=== PATIENT | female | born 1950 | race Caucasian/White ===

== ENCOUNTER 2022-12-29 01:49 | Emergency (ER) | payer MEDICARE, OTHER ==
[~2022-12-29] VITALS: Ht 160 cm; Wt 119.7 kg
[~2022-12-29 01:49] MED LIST: CIPR-260 PO; GLUXR500 PO; LIP20 PO; PROAIR
--- NOTE | 2022-12-29 01:50 | NUR ---
Patient triaged and placed in ED RM 06. VSS and patient appears in no acute distress at this time. BIB BLS ambulance. MD Mccauley notified of need for MSE. Report given to MARK Bonenr.
--- NOTE | 2022-12-29 01:53 | NUR ---
MD Mccauley at bedside examining pt.
[2022-12-29 01:58] VITALS: BP_SYST 164
--- NOTE | 2022-12-29 02:30 | NUR ---
Patient BIB to ED from home with c/o headache associated with nausea x1 day. Patient reports pain 0/10 at this time. Patient A/Ox4, VSS, ambulatory, resp even and unlabored. Nad noted at this time. ER MD Mccauley made aware.
[2022-12-29] MEDS ORDERED: cloNIDine HCL 0.1 MG TABLET ONE ×2 (02:40→03:45)
--- NOTE | 2022-12-29 02:41 | NUR ---
Notified Dr. Mccauley and primary assigned nurse of patient's most recent blood pressure and heart rate. Instructed to hold bp med at this time. Pt may require medication later, so med still remains on emar. Primary nurse aware that I withheld med due to bp.
[2022-12-29] MEDS ORDERED: cloNIDine HCL 0.2 MG TABLET PO ONE (02:45)
[2022-12-29 03:01] LABS: CALCIUM 9.4 mg/dL (8.4-11.0); CREATININE 1.53 mg/dL (0.55-1.30)
[2022-12-29 03:01] LABS: BASOPHILS % (AUTO) 0.3 % (0.0-2.0); EOSINOPHILS # (AUTO) 0.3 K/uL (0.0-0.4); EOSINOPHILS % (AUTO) 3.6 % (0.0-4.0); HEMATOCRIT 38.1 % (36-48); HEMOGLOBIN 12.5 g/dL (12.0-16.0); LYMPHOCYTES # (AUTO) 2.2 K/uL (1.0-5.5); LYMPHOCYTES % (AUTO) 28.5 % (20.5-51.5); MEAN CORPUSCULAR HEMOGLOBIN 28 pg (27-31); MEAN CORPUSCULAR HGB CONC 33 % (32-36); MEAN CORPUSCULAR VOLUME 85 fL (79.0-98.0); MONOCYTES # (AUTO) 0.5 K/uL (0.0-1.0); MONOCYTES % (AUTO) 6.5 % (1.7-9.3); NEUTROPHILS # (AUTO) 4.8 K/uL (1.8-7.7); NEUTROPHILS % (AUTO) 61.1 % (40.0-70.0); PLATELET COUNT (AUTO) 185 K/uL (130-430); WHITE BLOOD COUNT (AUTO) 7.8 K/uL (4.8-10.8)
[2022-12-29 03:06] LABS: ALBUMIN 3.7 g/dL (3.4-4.8); TOTAL BILIRUBIN 0.5 mg/dL (0.0-1.0)
--- NOTE | 2022-12-29 03:30 | NUR ---
Patient resting comfortably in bed with safety precautions in place. Nad noted at this time.
--- NOTE | 2022-12-29 04:49 | NUR ---
Patient given written and verbal discharge instructions and verbalizes understanding. ER MD discussed with patient the results and treatment provided. Patient in stable condition. ID arm band removed. IV catheter removed intact and dressing applied, no active bleeding. Patient educated on pain management and to follow up with PMD. Pain Scale 0/10. Opportunity for questions provided and answered.
[2022-12-29 04:59] VITALS: BP_SYST 114
== END 2022-12-29 04:59 | disposition home or self-care (01) ==
LOC: SED 01:49
DX: I10 Essential (primary) hypertension (principal); R51.9 Headache, unspecified; R11.0 Nausea; J44.9 Chronic obstructive pulmonary disease, unspecified; E11.9 Type 2 diabetes mellitus without complications; Z79.899 Other long term (current) drug therapy
CPT/HCPCS: 36415; 80053; 83605; 85025; 87040; 93005; 99285